=== PATIENT | female | born 1945 | race Caucasian/White ===

== ENCOUNTER 2022-03-03 06:31 | Observation (INO) ==
--- NOTE | 2022-02-04 14:37 | PAT Medication Instructions ---
Medication Instructions Date of Service February 04, 2022 Home Medications Medication Instructions Recorded acetaminophen 650 mg 1,300 mg PO Q12H PRN #90 tab 05/11/19 tablet,extended release (Tylenol Arthritis Pain) lancets (OneTouch UltraSoft #100 ea 05/11/19 Lancets) knee high compression stockings #1 ea 06/05/20 mild compression blood sugar diagnostic (OneTouch #100 ea 12/30/20 Ultra Blue Test Strip) metformin 1,000 mg tablet 1,000 mg PO BID #180 tab 08/15/21 insulin aspart U-100 100 unit/mL 14 unit SQ TID #13 syr 12/19/21 (3 mL) subcutaneous pen (Novolog Flexpen U-100 Insulin aspart) pen needle, diabetic 31 gauge x #150 ea 01/07/22 5/16" (Sure-Fine Pen [place]) acetaminophen 650 mg tablet,extended release (Tylenol Arthritis Pain) 1,300 mg PO Q12H PRN lancets (OneTouch UltraSoft Lancets) knee high compression stockings mild compression blood sugar diagnostic (OneTouch Ultra Blue Test Strip) insulin detemir U-100 100 unit/mL (3 mL) subcutaneous pen (Levemir FlexTouch U- 100 Insulin) 68 unit SQ QPM metformin 1,000 mg tablet 1,000 mg PO BID insulin aspart U-100 100 unit/mL (3 mL) subcutaneous pen (Novolog Flexpen U-100 Insulin aspart) 14 unit SQ TID pen needle, diabetic 31 gauge x 5/16" (Sure-Fine Pen [place]) aspirin 81 mg tablet,delayed release 81 mg PO QAM atorvastatin 20 mg tablet 20 mg PO QAM cyanocobalamin (vitamin B-12) 1,000 mcg tablet 1,000 mcg PO QAM furosemide 20 mg tablet 40 mg PO QAM hydrochlorothiazide 12.5 mg tablet 12.5 mg PO QAM levothyroxine 137 mcg tablet (Synthroid) 137 mcg PO QAM losartan 100 mg tablet 100 mg PO QAM metoprolol succinate 50 mg tablet,extended release 24 hr 50 mg PO QAM potassium chloride 10 mEq tablet,extended release 30 meq PO QAM DO NOT take the morning of surgery insulin aspart U-100 100 unit/mL (3 mL) subcutaneous pen (Novolog Flexpen U-100 Insulin aspart) 14 unit SQ TID metformin 1,000 mg tablet 1,000 mg PO BID cyanocobalamin (vitamin B-12) 1,000 mcg tablet 1,000 mcg PO QAM furosemide 20 mg tablet 40 mg PO QAM hydrochlorothiazide 12.5 mg tablet 12.5 mg PO QAM losartan 100 mg tablet 100 mg PO QAM potassium chloride 10 mEq tablet,extended release 30 meq PO QAM Take morning of surgery With a small sip of water, OTHERWISE NOTHING TO EAT OR DRINK AFTER MIDNIGHT: acetaminophen 650 mg tablet,extended release (Tylenol Arthritis Pain) 1,300 mg PO Q12H PRN(okay to take up to 4 hours prior to surgery if needed) aspirin 81 mg tablet,delayed release 81 mg PO QAM (unless directed otherwise by surgeon) atorvastatin 20 mg tablet 20 mg PO QAM levothyroxine 137 mcg tablet (Synthroid) 137 mcg PO QAM metoprolol succinate 50 mg tablet,extended release 24 hr 50 mg PO QAM Take evening before surgery acetaminophen 650 mg tablet,extended release (Tylenol Arthritis Pain) 1,300 mg PO Q12H PRN(if needed) metformin 1,000 mg tablet 1,000 mg PO BID Insulin Dependent Diabetic Patients * Test your blood sugar the morning of surgery * If Blood Sugar is GREATER THAN 150, take HALF of your regular dose of: insulin detemir U-100 100 unit/mL (3 mL) subcutaneous pen (Levemir FlexTouch U-100 Insulin) 68 unit SQ QPM-take 34 units. * If Blood Sugar is LESS THAN 150, DO NOT TAKE ANY: insulin detemir U-100 100 unit/mL (3 mL) subcutaneous pen (Levemir FlexTouch U-100 Insulin). Other Notes If you have any questions please call us at [phone] or [phone] or [phone] or [phone]
--- NOTE | 2022-02-05 11:55 | Anesthesiology Consultation ---
Date of Service February 05, 2022 Assessment & Plan (1) Encounter for pre-operative examination: - check BSG am DOS. - COVID screening: Per assessment on 02/05/2022: Travel screen negative, no known COVID-19 positive contacts or current COVID-19 related symptoms in past 2 weeks. Patient vaccinated. Surgeon arranging preop COVID testing, scheduled 03/01/2022. Awaiting results. Chart Review Chart Review: Acceptable Risk for Surgery and Patient NOT seen in Pre Admission Testing Teaching & Discussion Pre-Anesthesia Teaching/Discussion Notes: Instructed NPO after midnight before surgery, except medications with 15 cc of water. Medication instructions provided according to the PAT guidelines. History Surgery Operation Date: 03/03/22 10:35 Proposed Procedures p Right Total Knee Arthroplasty - Edgar Garcia MD Height/Weight Height: 5 ft 3 in Weight: 104.9 kg Allergies Allergy/AdvReac Type Severity Reaction Status Date / Time ibuprofen Allergy Severe Anaphylaxis Verified 02/04/22 12:47 and hives Penicillins Allergy Severe Anaphylaxis Verified 02/04/22 12:47 and hives Medications Home Medications Medication Instructions Recorded Confirmed Last Taken acetaminophen 650 mg 1,300 mg PO Q12H PRN #90 tab 05/11/19 02/04/22 Unknown tablet,extended release (Tylenol Arthritis Pain) lancets (OneTouch UltraSoft #100 ea 05/11/19 11/24/21 Unknown Lancets) knee high compression stockings #1 ea 06/05/20 11/24/21 Unknown mild compression blood sugar diagnostic (OneTouch #100 ea 12/30/20 11/24/21 Unknown Ultra Blue Test Strip) insulin detemir U-100 100 unit/mL 68 unit SQ QPM ml 07/20/21 02/04/22 Unknown (3 mL) subcutaneous pen (Levemir FlexTouch U-100 Insulin) metformin 1,000 mg tablet 1,000 mg PO BID #180 tab 08/15/21 02/04/22 Unknown insulin aspart U-100 100 unit/mL 14 unit SQ TID #13 syr 12/19/21 02/04/22 Unknown (3 mL) subcutaneous pen (Novolog Flexpen U-100 Insulin aspart) pen needle, diabetic 31 gauge x #150 ea 01/07/22 Unknown 02/08" (Sure-Fine Pen [place]) aspirin 81 mg tablet,delayed 81 mg PO QAM 02/04/22 02/04/22 Unknown release atorvastatin 20 mg tablet 20 mg PO QAM 02/04/22 02/04/22 Unknown cyanocobalamin (vitamin B-12) 1,000 mcg PO QAM 02/04/22 02/04/22 Unknown 1,000 mcg tablet furosemide 20 mg tablet 40 mg PO QAM 02/04/22 02/04/22 Unknown hydrochlorothiazide 12.5 mg tablet 12.5 mg PO QAM 02/04/22 02/04/22 Unknown levothyroxine 137 mcg tablet 137 mcg PO QAM 02/04/22 02/04/22 Unknown (Synthroid) losartan 100 mg tablet 100 mg PO QAM 02/04/22 02/04/22 Unknown metoprolol succinate 50 mg 50 mg PO QAM 02/04/22 02/04/22 Unknown tablet,extended release 24 hr potassium chloride 10 mEq 30 meq PO QAM 02/04/22 02/04/22 Unknown tablet,extended release Past Medical History Medical History (Updated 02/05/22 @ 12:17 by Milena Pace PA-C) Adenomatous colon polyp Bilateral leg edema on diuretic Chronic lower back pain Diabetes mellitus IDDM 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 Exercise / Class Metabolic Activity III < 4 Walking/Shop/Light housework (ambulates with walker or cane, denies CP or SOB) Past Family History Family History Mother Diabetes Hypertension Grandmother (Maternal) Diabetes Grandfather (Maternal) Diabetes Father Heart disease Heart disease Grandfather (Paternal) Heart disease Grandmother (Paternal) Heart disease Brother Diabetes GI hemorrhage Father Asthma Sister Acid reflux Other No family history of adverse response to anesthesia Denies family history of Ovarian cancer Prostate cancer Myocardial infarction Breast cancer Colorectal cancer Past Surgical History Surgical History (Updated 02/05/22 @ 12:17 by Milena Pace PA-C) H/O excision of mass (01/12/21) Excision of mass on back 01/12/[address] Sauceda History of bilateral cataract extraction History of repair of right rotator cuff 2019 History of tooth extraction S/P cholecystectomy S/P colonoscopy x2 Past Anesthesia History No Hx of Anesthesia Complications and No Family Hx of Anesthesia Complications History of PONV No Hx of PONV and No Hx of Motion Sickness Social History Smoking Status: Never smoker Do You Dip or Chew Tobacco: No Hx Alcohol Use: No Hx Substance Use: No substance use type: does not use Review of Systems Patient denies chest pain, shortness of breath, dyspnea on exertion, reflux, fever, chills, cough, wheezing, or palpitations. Physical Exam Vital Signs Vitals BP 128/71 P 57 TEMP 98.8 SP02 97% on RA RESP 17 Physical Full cervical extension range of motion without pain TMD 3.5 finger breaths Mallampati Score 3 Dentition: intact, full upper dentures and Lungs: normal respiratory effort. Clear throughout to auscultation, no adventitious breath sounds Cardiac: regular rate and rhythm, no murmurs noted Carotid arteries: negative bruit bilat Lab Results Anesthesia Preop Results Results Anesthesia Widget: WBC 8.50 K/uL (4.8-10.8) 02/05/22 Hgb 12.4 g/dL (12.0-16.0) 02/05/22 Hct 37.7 % (37-47) 02/05/22 Plt 232 K/uL (130-400) 02/05/22 Na 142 mmol/L (136-145) 02/05/22 K 4.1 mmol/L (3.5-5.1) 02/05/22 Cl 107 mmol/L (98-107) 02/05/22 CO2 26 mmol/L (21-32) 02/05/22 BUN 18 mg/dl (6-23) 02/05/22 Creat 0.80 mg/dl (0.6-1.2) 02/05/22 Glucose Level 108 mg/dl (70-99(Fasting)) H 02/05/22 PT 10.3 Seconds (9.0-12.0) 02/05/22 PTT 22.2 Seconds (21.0-31.0) 02/05/22 INR 1.0 (0.9-1.1) 02/05/22 HA1c 6.7 % (4.5-5.6) H 02/05/22 Urine Color Yellow 02/05/22 Urine Appearance Clear (Clear) 02/05/22 Urine pH 5.0 (4.5-7.5) 02/05/22 Urine Specific [place] 1.011 (1.000-1.030) 02/05/22 Urine Protein Negative (Negative) 02/05/22 Urine Glucose (UA) Negative (Negative) 02/05/22 Urine Ketones Negative (Negative) 02/05/22 Urine Blood Negative (Negative) 02/05/22 Urine Nitrite Negative (Negative) 02/05/22 Urine Bilirubin Negative (Negative) 02/05/22 Urine Urobilinogen Negative (Negative) 02/05/22 Urine Leukocyte Esterase 1+ (Negative) H 02/05/22 Urine WBC (Auto) 5-10 /hpf (0-5) H 02/05/22 Urine RBC (Auto) 0-4 /hpf (0-4) 02/05/22 Urine Hyaline Casts (Auto) 0 /lpf (0-5) 02/05/22 Urine Epithelial Cells (Auto) 20-30 /lpf (0-5) H 02/05/22 Urine Bacteria (Auto) 4+ (Negative) H 02/05/22 Blood Type A Positive 02/05/22 Antibody Screen NEGATIVE 02/05/22 Testing Electrocardiogram Date: 02/05/22 NSR, rate 64 bpm Chest X-Ray Date: 02/05/22 Borderline cardiomegaly. Otherwise, no acute process within the chest. Echocardiogram Date: 07/30/21 EF 60-65% Mild cLVH No regional wall motion abnormalities Mild mitral regurgitation Grade II diastolic dysfunction
--- NOTE | 2022-02-05 12:18 | PAT Medication Instructions ---
Medication Instructions Date of Service February 05, 2022 Home Medications Medication Instructions Recorded acetaminophen 650 mg 1,300 mg PO Q12H PRN #90 tab 05/11/19 tablet,extended release (Tylenol Arthritis Pain) lancets (OneTouch UltraSoft #100 ea 05/11/19 Lancets) knee high compression stockings #1 ea 06/05/20 mild compression blood sugar diagnostic (OneTouch #100 ea 12/30/20 Ultra Blue Test Strip) metformin 1,000 mg tablet 1,000 mg PO BID #180 tab 08/15/21 insulin aspart U-100 100 unit/mL 14 unit SQ TID #13 syr 12/19/21 (3 mL) subcutaneous pen (Novolog Flexpen U-100 Insulin aspart) pen needle, diabetic 31 gauge x #150 ea 01/07/22 516" (Sure-Fine Pen [place]) Continue as directed acetaminophen 650 mg tablet,extended release (Tylenol Arthritis Pain) 1,300 mg PO Q12H PRN lancets (OneTouch UltraSoft Lancets) knee high compression stockings mild compression blood sugar diagnostic (OneTouch Ultra Blue Test Strip) insulin detemir U-100 100 unit/mL (3 mL) subcutaneous pen (Levemir FlexTouch U- 100 Insulin) 68 unit SQ QPM metformin 1,000 mg tablet 1,000 mg PO BID insulin aspart U-100 100 unit/mL (3 mL) subcutaneous pen (Novolog Flexpen U-100 Insulin aspart) 14 unit SQ TID pen needle, diabetic 31 gauge x 5/16" (Sure-Fine Pen [place]) aspirin 81 mg tablet,delayed release 81 mg PO QAM atorvastatin 20 mg tablet 20 mg PO QAM cyanocobalamin (vitamin B-12) 1,000 mcg tablet 1,000 mcg PO QAM furosemide 20 mg tablet 40 mg PO QAM hydrochlorothiazide 12.5 mg tablet 12.5 mg PO QAM levothyroxine 137 mcg tablet (Synthroid) 137 mcg PO QAM losartan 100 mg tablet 100 mg PO QAM metoprolol succinate 50 mg tablet,extended release 24 hr 50 mg PO QAM potassium chloride 10 mEq tablet,extended release 30 meq PO QAM DO NOT take the morning of surgery insulin aspart U-100 100 unit/mL (3 mL) subcutaneous pen (Novolog Flexpen U-100 Insulin aspart) 14 unit SQ TID metformin 1,000 mg tablet 1,000 mg PO BID cyanocobalamin (vitamin B-12) 1,000 mcg tablet 1,000 mcg PO QAM furosemide 20 mg tablet 40 mg PO QAM hydrochlorothiazide 12.5 mg tablet 12.5 mg PO QAM losartan 100 mg tablet 100 mg PO QAM potassium chloride 10 mEq tablet,extended release 30 meq PO QAM Take morning of surgery With a small sip of water, OTHERWISE NOTHING TO EAT OR DRINK AFTER MIDNIGHT: acetaminophen 650 mg tablet,extended release (Tylenol Arthritis Pain) 1,300 mg PO Q12H PRN(okay to take up to 4 hours prior to surgery if needed) aspirin 81 mg tablet,delayed release 81 mg PO QAM(unless directed otherwise by surgeon) atorvastatin 20 mg tablet 20 mg PO QAM levothyroxine 137 mcg tablet (Synthroid) 137 mcg PO QAM metoprolol succinate 50 mg tablet,extended release 24 hr 50 mg PO QAM Take evening before surgery insulin detemir U-100 100 unit/mL (3 mL) subcutaneous pen (Levemir FlexTouch U- 100 Insulin) 68 unit SQ QPM acetaminophen 650 mg tablet,extended release (Tylenol Arthritis Pain) 1,300 mg PO Q12H PRN(if needed) metformin 1,000 mg tablet 1,000 mg PO BID Other Notes If you have any questions please call us at [phone] or [phone] or [phone] or [phone]
--- NOTE | 2022-02-27 08:39 | History & Physical Report ---
Date of Service February 27, 2022 Assessment & Plan (1) Primary osteoarthritis of right knee: Plan: Treatment options discussed with the patient. She has failed conservative measures and would like to proceed with surgical intervention. Risks, benefits and alternatives to surgery including but not limited to infection, DVT, pain, stiffness, need for revision surgery, damage to blood vessels, damage to nerves, PE, , were discussed with the patient and they wish to proceed. Plan on right total knee arthroplasty scheduled at [facility] for March [address] Garcia. We will plan on aspirin twice daily for 1 month postop for DVT prophylaxis. Patient would like to go to an inpatient rehab/intermediate facility postop. All questions answered. Patient will follow-up postop. History of Present Illness Chief Complaint: Right knee pain Primary Care Provider: Gail Osorio MD 76-year-old female past medical history significant for diabetes mellitus type 2, hypertension, high cholesterol hypothyroidism, who presents with ongoing right knee pain. Patient has failed conservative measures including cortisone and Visco injections, anti-inflammatories. Pain is interfering with her daily activities. She would like to proceed with knee replacement. Patient denies headaches, sweats, fevers, chills, double vision, blurred vision, cough, sore throat, dysphagia, chest pain, sob, wheezing, n/v/d/c, numbness, tingling, fatigue, urinary symptoms, mood disorders. ROS positive for right knee pain and stiffness. Allergies Allergy/AdvReac Type Severity Reaction Status Date / Time ibuprofen Allergy Severe Anaphylaxis Verified 02/04/22 12:47 and hives Penicillins Allergy Severe Anaphylaxis Verified 02/04/22 12:47 and hives Home Medications Medication Instructions Recorded Confirmed Type acetaminophen 650 mg 1,300 mg PO Q12H PRN #90 tab 05/11/19 02/10/22 Rx tablet,extended release (Tylenol Arthritis Pain) lancets (OneTouch UltraSoft #100 ea 05/11/19 02/10/22 Rx Lancets) knee high compression stockings #1 ea 06/05/20 02/10/22 Rx mild compression metformin 1,000 mg tablet 1,000 mg PO BID #180 tab 08/15/21 02/10/22 Rx insulin aspart U-100 100 unit/mL 14 unit SQ TID #13 syr 12/19/21 02/10/22 Rx (3 mL) subcutaneous pen (Novolog Flexpen U-100 Insulin aspart) pen needle, diabetic 31 gauge x #150 ea 01/07/22 02/10/22 Rx 5/16" (Sure-Fine Pen [place]) aspirin 81 mg tablet,delayed 81 mg PO QAM 02/04/22 02/10/22 History release atorvastatin 20 mg tablet 20 mg PO QAM 02/04/22 02/10/22 History cyanocobalamin (vitamin B-12) 1,000 mcg PO QAM 02/04/22 02/10/22 History 1,000 mcg tablet furosemide 20 mg tablet 40 mg PO QAM 02/04/22 02/10/22 History hydrochlorothiazide 12.5 mg tablet 12.5 mg PO QAM 02/04/22 02/10/22 History levothyroxine 137 mcg tablet 137 mcg PO QAM 02/04/22 02/10/22 History (Synthroid) losartan 100 mg tablet 100 mg PO QAM 02/04/22 02/10/22 History metoprolol succinate 50 mg 50 mg PO QAM 02/04/22 02/10/22 History tablet,extended release 24 hr potassium chloride 10 mEq 30 meq PO QAM 02/04/22 02/10/22 History tablet,extended release blood sugar diagnostic #100 ea 02/10/22 02/10/22 Rx insulin detemir U-100 100 unit/mL 68 unit SQ QPM #45 ml 02/10/22 02/10/22 Rx (3 mL) subcutaneous pen (Levemir FlexTouch U-100 Insulin) Past Med/Surg History Medical History (Updated 02/27/22 @ 08:37 by Rodrigo Atwood PA-C) Adenomatous colon polyp Bilateral leg edema on diuretic Chronic lower back pain Diabetes mellitus IDDM 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 Sohail History of bilateral cataract extraction History of repair of right rotator cuff 2019 History of tooth extraction S/P cholecystectomy S/P colonoscopy x2 Family History Mother Diabetes Hypertension Grandmother (Maternal) Diabetes Grandfather (Maternal) Diabetes Father Heart disease Heart disease Grandfather (Paternal) Heart disease Grandmother (Paternal) Heart disease Brother Diabetes GI hemorrhage Father Asthma Sister Acid reflux Other No family history of adverse response to anesthesia Denies family history of Ovarian cancer Prostate cancer Myocardial infarction Breast cancer Colorectal cancer Social History Smoking Status: Never smoker Second Hand Exposure: Yes (Brothers and smoked); Hx Alcohol Use: No Hx Substance Use: No Preferred Language: Amharic Communication Ability: Effective Visual Impairment: Limited Hearing Ability: Normal Retail Asset Protection Specialist Required: No Beliefs That Will Affect Care: None marital status: Current Living Situation: Spouse current occupational status: retired How many Children do You have: 3 Feels Safe at Home: Yes Childhood Exposure to Second-Hand Smoke: Yes (Brothers smoked ) Diet Comment: Diabetic diet caffeine: Yes (tea coffee) during the past year weight has: remained stable Dental Care, Regularly: Yes Physical Activity Frequency: Does not Exercise Seatbelt Use: always Sunscreen Use: No Do you think of yourself as: straight/heterosexual Assistive Devices: CPAP, Denture - Upper, Denture - Lower, Glasses and Walker Review of Systems All systems reviewed & are unremarkable except as noted in HPI & below Physical Exam Constitutional: well developed and well nourished; no acute distress Eyes: PERRL, conjunctivae normal, anicteric sclerae ENMT: external ear and nose normal, oropharynx normal Neck: trachea midline, no thyromegaly Respiratory: normal respiratory effort, lungs clear to auscultation Cardiovascular: RRR, no murmur, no edema Musculoskeletal: Right knee: Mild effusion. Tenderness medial lateral joint lines. Stable valgus varus stress test. Positive Smooth's. Range of motion is 5 to 90 degrees. Moderate crepitation. Valgus alignment. Skin: no rashes, warm and dry Neurologic: patellar DTR's 2+ bilat, sensation intact Psychiatric: A+Ox3, euthymic affect Results & Data ([facility]) Diagnostic Findings Right knee: Severe end-stage osteoarthritis right knee, valgus alignment. Patient has [id number] lateral compartment. There is periarticular osteophyte formation all 3 compartments.
[~2022-03-03 06:31] MED LIST: ACETAMINOPHEN 500 MG TAB PO SCH; DEXAMETHASONE SOD INJ 4 MG/ML VIAL ONE; FAMOTIDINE 20 MG TAB PO SCH; GABAPENTIN 300 MG CAP PO SCH; LR 500ML BOLUS, THEN 15ML/HR IV SCH; METOCLOPRAMIDE HCL 10 MG TABLET PO SCH; ROPIVACAINE 0.5% 5 MG/ML 30 ML VIAL ONE; ROPIVACAINE 0.5% HCL/PF 150 MG, BUPIVACAINE 0.75% MPF 20 ML, EPINEPHrine 30MG/30ML (OR ... INSTIL SCH; TRANEXAMIC ACID 1,000 MG **IV Intra-op IV SCH; TRANEXAMIC ACID 1,000 MG **IV Pre-op IV SCH; VANCOMYCIN HCL 1,500 MG in SODIUM CHLORIDE 0.9% 500 ML IV SCH
--- NOTE | 2022-03-03 07:12 | History & Physical Bridge Note ---
Date of Service March 03, 2022 History & Physical Bridge Note I have examined the patient, reviewed the History & Physical and in the interval since the performance of the History & Physical I have noted the following changes of clinical significance: no changes noted
[2022-03-03] MEDS ORDERED: HYDROmorphone INJ 1 MG/ML SYRINGE IV PRN (08:22)
[2022-03-03] MEDS ORDERED: ATROPINE SULFATE 0.1 MG/ML 10ML SYR IV PRN (08:22)
[2022-03-03] MEDS ORDERED: ePHEDrine sulfate 50 MG/ML AMP IV PRN (08:22)
[2022-03-03] MEDS ORDERED: MIDAZOLAM HCL 1 MG/ML 2ML VIAL ONE (08:22)
[2022-03-03] MEDS ORDERED: dexAMETHasone 4 MG TAB PO ONE (08:22)
[2022-03-03] MEDS ORDERED: KETAMINE 50 MG/5 ML SYRINGE ONE (08:22)
[2022-03-03] MEDS ORDERED: ORTHO JOINT ANESTHETIC ONE (08:30)
[2022-03-03] MEDS ORDERED: ONDANSETRON INJ 2 MG/ML 2 ML VIAL ONE (09:11)
[2022-03-03] MEDS ORDERED: PROPOFOL IV EMULSION 10 MG/ML 20 ML VIAL IV ONE ×2 (09:11→10:22)
[2022-03-03] MEDS ORDERED: GLYCOPYRROLATE 0.2 MG/ML VIAL ONE (09:11)
[2022-03-03] MEDS ORDERED: LIDOCAINE 2% 2 ML VIAL/AMP(20MG/ML) INFIL ONE (09:11)
[2022-03-03] MEDS ORDERED: ePHEDrine sulfate 50 MG/ML AMP ONE (09:39)
[2022-03-03] MEDS ORDERED: SODIUM CHLORIDE 0.9% INJ 10 ML VIAL ONE (09:39)
--- NOTE | 2022-03-03 11:12 | Operative Report ---
Post Operative Report Pre & Post Diagnosis Operation Date: 03/03/22 09:15 Pre-Op Diagnosis: Right Knee Osteoarthritis, Pasquale slaughters disease, obesity BMI 40.9 Post-Op Diagnosis: Right Knee Osteoarthritis, [place] slaughters disease, obesity BMI 40.9 I identified the patient and participated in the time-out.: Yes Procedure Operation Date: 03/03/22 09:15 Actual Procedures p Right Total Knee Arthroplasty(Right), superficial wound VAC, increased difficulty BMI 40.9 Edgar Garcia MD Surgeon Edgar Garcia MD Hot Air Furnace Installer Repairer Ravi PADILLA Estimated Blood Loss 5 Findings Consistent with Post-Op Diagnosis Specimens Bone cuts Drains 2 Hemovac Anesthesia Type MAC Spinal Regional Complications none Disposition Accompanied Patient To Recovery: No Disposition: Recovery Room Indications 76-year female with chronic aggressive osteoarthritis in her right knee. Radiographs demonstrates [id number] lateral compartment which is tricompartmental osteoarthritis. She has limited range of motion. Description of Procedure Patient taken to the operating room the size under spinal MAC regional block anesthesia. Patient was placed supine on the operating table. A pneumatic tourniquet was placed about the right obese upper thigh. The right lower extremity was prepped and draped in sterile fashion. Knee exam demonstrated an obese valgus knee 0 through 90 degrees range of motion and prominent tibial tubercle consistent with old [place] slaughters. Patient had tight knee with no instability. The leg was elevated exsanguinated with an Esmarch bandage and pneumatic tourniquet was raised to 350 millimeters of mercury. Skin incised sharply in longitudinal fashion. Subcutaneous flaps elevated. Incision was made through the medial retinaculum extending up in the mid third of the quadriceps tendon and down to the medial tibial tubercle. Intra-articular findings demonstrated tricompartmental osteoarthritis [id number] lateral compartment chronic lateral meniscus tear. There was a hypoplastic lateral femoral condyle. The Fashioholicn total knee arthroplasty system was used. To expose the knee the infrapatellar fat pad was resected. The meniscal remnants and cruciate ligaments were resected. The anterior fat pad over the femur in the area of the anterior flange of the femoral component was resected. Lateral synovial bands release. The femur was exposed. An intramedullary drill hole was made into the canal. A guide tiffanie was placed. Distal femoral cutting guide was adjusted to resect a 6 degree valgus cut with 8 millimeters distal femur resected. The knee was extended and a subperiosteal peel lateral release was performed around the patella. Patella width was measured and width was reproduced using a freehand cut technique and a 36 x 10 symmetrical patella component. The 3 drill holes were made and the excess lateral facet was beveled off to prevent any impingement. Attention was taken back to the femur which was exposed with retractors and the femoral sizing guide was pinned in position. The drill holes were placed in 3 of external rotation to match epicondylar axis. Femur sized for a 5 posterior stabilized component. The 4-in-1 cutting block was placed and then the anterior posterior and chamfer cuts are made. The tibia was then subluxed. The external tibial cutting guide was just to make a perpendicular cut to the long axis of the tibia below the most deficient bone loss side. A lamina stick welder was used and the flexion extension gaps were balanced. All posterior osteophytes removed. All meniscal remnants were resected. The tibia exposed and the trial tibial component size 4 was externally rotated in line with the tibial tubercle and pinned in position. The punch for stem was used. The notch cutting device was centered appropriately and the femoral notch cut was made. The femoral trial was inserted. Trial tibial inserts were placed. The size 9 was too tight to get into the space so he had to recut the tibia. In order to get the external tibial cutting guide to the appropriate depth to make 2 more millimeters of a cut I had to resect some of the proximal tibial tubercle to make room for the cutting guide. After cutting guide was readjusted the oscillating saw was used to recut the proximal tibia and the punch was used again to get the appropriate depth for the stem. Trial we reduction performed with the trials and a size 9 tibial insert gave balanced ligaments through flexion and extension. Patella tracking was assessed. The patella tracked centrally. There was 0 through 100 degrees range of motion. The trial components were then removed and the orthomix anesthetic cocktail was injected per protocol. The knee was then copiously irrigated with pulsatile lavage saline solution. Final components were then cemented with Refobacin cement. Final components were triathlon right size 5 posterior stabilized femoral component, size 4 tibial primary insert, 9 mm tibial polyethylene and the 36 x 10 mm symmetrical polyethylene patella. After the cement cured the Betadine soak was used for 3 minutes. Further pulsatile lavage irrigation was then performed and 2 Hemovac drains were brought out laterally. The quadriceps tendon and medial retinaculum were closed with figure of 8 #1 Vicryl sutures. The knee was taken through full range of motion and the repair was secure. Knee range of motion was 0 through 100. The subcutaneous tissues were closed with 2-0 Vicryl sutures. Skin was closed with marizol. Amanda and Acticoat superficial wound VAC was applied. Was increased level difficulty due to her obesity the Pasquale slaughters disease which added 30 minutes to the procedure. The patient tolerated the procedure well. Ravi PADILLA was my physician certified ophthalmic assistant who participated as mobile sales assistant and was involved in all aspects of the procedure including patient positioning prepping and draping,leg positioning ,soft tissue retraction and instrument management and participated in the closing and will participate in postoperative care of the patient. The patient tolerated the procedure well. I attest to the content of the Intraoperative Record and any orders documented therein. Any exceptions are noted below.
--- NOTE | 2022-03-03 12:17 | Anesthesiology Progress Note ---
Date of Service March 03, 2022 Anesthesia Post Procedure Vital Signs Vital Signs: Temp Pulse Pulse Resp BP BP Pulse Ox 03/03/22 12:10 36.8 C 58 L 14 146/58 H 96 03/03/22 12:00 36.8 C 57 L 18 133/61 93 03/03/22 11:50 64 20 136/63 94 03/03/22 11:40 64 18 129/48 L 95 03/03/22 11:32 36.2 C L 64 17 133/55 L 99 03/03/22 07:13 36.9 C 66 18 163/70 H 99 Pain Intensity Bilateral Knee: Pain Intensity: 8 Transfer of Care Handoff Completed per policy Notes Mental Status: alert / awake / arousable and participated in evaluation Patient Amnestic to Procedure: Yes Nausea / Vomiting: adequately controlled Pain: adequately controlled Airway Patency, RR, SpO2: stable & adequate BP & HR: stable & adequate Hydration State: stable & adequate Anesthetic Complications: no major complications apparent and Pt Satisfied with anesthetic care
--- NOTE | 2022-03-03 12:23 | XRay Report ---
XR knee RT 1 or 2V routine CLINICAL HISTORY: Surgical Post Op TECHNIQUE: 2 views of the right knee were obtained. Comparison: None available at the time of this dictation. FINDINGS: Patient is status post total knee arthroplasty with expected postsurgical changes including soft tiss ue swelling, subcutaneous emphysema, and surgical staple placement. No periarticular lucency or hardw are fracture is seen. IMPRESSION: Expected postoperative appearance status post placement of total knee arthroplasty. ACT 112: Negative or not required by law. Electronically signed by: Jude Fritz M.D. 03/03/2022 12:21 PM
[2022-03-03] MEDS ORDERED: bisacodyL 10 MG SUPP PR PRN (13:43)
[2022-03-03] MEDS ORDERED: NALOXONE HCL 0.4 MG/1 ML VIAL/CARP IV PRN (13:43)
[2022-03-03] MEDS ORDERED: ONDANSETRON INJ 2 MG/ML 2 ML VIAL IV PRN (13:43)
[2022-03-03] MEDS ORDERED: VANCOMYCIN CONSULT ACTIVE PRN (13:43)
[2022-03-03] MEDS ORDERED: PHARMACY GLYCEMIC MGMT CONSULT PRN (13:43)
[2022-03-03] MEDS ORDERED: HYDROmorphone INJ 0.5 MG/0.5 ML SYR IV PRN (13:43)
[2022-03-03] MEDS ORDERED: MAGNESIUM HYDROXIDE SUSP 30 ML UDC PO PRN (13:43)
--- NOTE | 2022-03-03 13:53 | Hospitalist Consultation ---
Date of Consultation March 03, 2022 Assessment & Plan (1) Primary osteoarthritis of right knee: - s/p R TKA POD #0. EBL 5cc - Defer ABX/pain/bowel regimen/IVF/DVT ppx to primary team. - Narcan on board prn. - CBC and BMP in AM. (2) Essential hypertension: - Takes Losartan 100 mg daily, Metoprolol 50 mg daily, HCTZ 12.5 mg daily, Furosemide 40 mg daily. - May continue beta-sigifredo today, would recommend holding HCTZ, Lasix, Losartan until tomorrow AM pending stable renal functon on BMP. (3) Diabetes mellitus: - Last A1C 6.7 on 02/05/22. - Home regimen--> Metformin 1000 mg BID, Levemir 68 units in the evening and Novolog 14 units TID with meals. - Can continue metformin, accuchecks ACHS with SSI, continue home evening Levemir insulin. (4) Hyperlipidemia: - Continue Lipitor 20 mg daily. (5) Hypothyroidism: - TSH WNL 11/24/21. - Continue Levothyroxine 137 mcg daily. (6) LACIE on CPAP: - Continue CPAP at night. (7) Bilateral leg edema: - Takes Lasix 40 mg daily with 30 mEq K+. - Recommend continuing Lasix tomorrow pending stable renal function on BMP. - Admitted to med/surg s/p R TKA per primary team. - SCDs, ASA 81mg BID for DVT ppx as ordered by primary team. - Full Code. Supervising Physician Co-Signing Physician Notes Discussed case with ROLANDO, reviewed medical record. Agree with her note above. Our service was consulted by Dr. Duvall, currently TKA POD #0. Plan to continue medical management as noted above. No acute medical issues. Floor team will continue to follow while the patient remains here in the hospital. History of Present Illness Reason for Consultation: medical management Attending Physician: Edgar Garcia MD History of Present Illness Jazmyn Romeo is a 76 y/o F with a PMH of DM2 on insulin, w/ neuropathy, HTN, HLD, hypothyroidism, and LACIE who was admitted today, 03/03 for right TKA with Dr. Garcia after failing conservative therapies. Hospitalist service was consulted for medication management. She is POD#0 and doing well, without complaints. Denies fever/chills, chest pain, palpitations, SOB, cough, abdominal pain, n/v/d, pain, weakness, or numbness. Allergies Allergy/AdvReac Type Severity Reaction Status Date / Time ibuprofen Allergy Severe Anaphylaxis Verified 03/03/22 06:56 and hives Penicillins Allergy Severe Anaphylaxis Verified 03/03/22 06:56 and hives Home Medications Medication Instructions Recorded Confirmed Type acetaminophen 650 mg 1,300 mg PO Q12H PRN #90 tab 05/11/19 03/03/22 Rx tablet,extended release (Tylenol Arthritis Pain) lancets (OneTouch UltraSoft #100 ea 05/11/19 02/10/22 Rx Lancets) knee high compression stockings #1 ea 06/05/20 02/10/22 Rx mild compression insulin aspart U-100 100 unit/mL 14 unit SQ TID #13 syr 12/19/21 03/03/22 Rx (3 mL) subcutaneous pen (Novolog Flexpen U-100 Insulin aspart) pen needle, diabetic 31 gauge x #150 ea 01/07/22 02/10/22 Rx 5/16" (Sure-Fine Pen Elma) aspirin 81 mg tablet,delayed 81 mg PO QAM 02/04/22 03/03/22 History release atorvastatin 20 mg tablet 20 mg PO QAM 02/04/22 03/03/22 History cyanocobalamin (vitamin B-12) 1,000 mcg PO QAM 02/04/22 03/03/22 History 1,000 mcg tablet furosemide 20 mg tablet 40 mg PO QAM 02/04/22 03/03/22 History hydrochlorothiazide 12.5 mg tablet 12.5 mg PO QAM 02/04/22 03/03/22 History levothyroxine 137 mcg tablet 137 mcg PO QAM 02/04/22 03/03/22 History (Synthroid) losartan 100 mg tablet (Cozaar) 100 mg PO QAM 02/04/22 03/03/22 History metoprolol succinate 50 mg 50 mg PO QAM 02/04/22 03/03/22 History tablet,extended release 24 hr potassium chloride 10 mEq 30 meq PO QAM 02/04/22 03/03/22 History tablet,extended release blood sugar diagnostic #100 ea 02/10/22 02/10/22 Rx insulin detemir U-100 100 unit/mL 68 unit SQ QPM #45 ml 02/10/22 03/03/22 Rx (3 mL) subcutaneous pen (Levemir FlexTouch U-100 Insulin) metformin 1,000 mg tablet 1,000 mg PO BID 03/03/22 03/03/22 History Patient History Medical History Adenomatous colon polyp Bilateral leg edema on diuretic Chronic lower back pain Diabetes mellitus IDDM Diabetic peripheral neuropathy associated with type 2 diabetes mellitus feet Essential hypertension History of COVID-19 diagnosed 08/28/20 @ [facility]--asymptomatic-fully resolved Hyperlipidemia Hypothyroidism Incontinent of urine Morbid obesity with BMI of 40.0-44.9, adult LACIE on CPAP compliant Venous insufficiency Surgical History H/O excision of mass (01/12/21) Excision of mass on back 01/12/[address] Sauceda History of bilateral cataract extraction History of repair of right rotator cuff 2019 History of tooth extraction S/P cholecystectomy S/P colonoscopy x2 Family History Mother Diabetes Hypertension Grandmother (Maternal) Diabetes Grandfather (Maternal) Diabetes Father Heart disease Heart disease Grandfather (Paternal) Heart disease Grandmother (Paternal) Heart disease Brother Diabetes GI hemorrhage Father Asthma Sister Acid reflux Other No family history of adverse response to anesthesia Denies family history of Ovarian cancer Prostate cancer Myocardial infarction Breast cancer Colorectal cancer Social History Smoking Status: Never smoker Second Hand Exposure: Yes (Brothers and smoked); Do You Dip or Chew Tobacco: No; Tobacco Cessation Education Requested by Patient: No Hx Alcohol Use: No Hx Substance Use: No Preferred Language: Chilean Communication Ability: Effective Visual Impairment: Limited Hearing Ability: Normal Glass Cut Off Supervisor Required: No Beliefs That Will Affect Care: None marital status: Current Living Situation: Spouse current occupational status: retired How many Children do You have: 3 Other Information That Helps Us Care for You: No Feels Safe at Home: Yes Safety Concerns: Feels Safe At This Time Childhood Exposure to Second-Hand Smoke: Yes (Brothers smoked ) Diet Comment: Diabetic diet caffeine: Yes (tea coffee) during the past year weight has: remained stable Dental Care, Regularly: Yes Physical Activity Frequency: Does not Exercise Seatbelt Use: always Sunscreen Use: No Do you think of yourself as: straight/heterosexual Assistive Devices: CPAP, Denture - Upper and Glasses Review of Systems Review of Systems: Constitutional: No fever/chills, weakness, fatigue, myalgias, anorexia, night sweats Eyes: No diplopia, no worsening or blurred vision ENT: normal hearing, no trouble swallowing Respiratory: No cough, sputum, dyspnea at rest or on exertion Cardiovascular: No chest pain, tightness or palpitations Abdomen: No pain, nausea, vomiting, diarrhea or constipation : Denies dysuria, hematuria, increased urgency/frequency, urinary retention Musculoskeletal: No joint pain, calf pain, swelling Neurologic: No weakness, numbness/tingling, or balance problems Psychiatric: No anxiety or depression Skin: No rash or itch Physical Exam Physical Exam: General: awake, alert, no apparent distress Head: Normocephalic, atraumatic ENT: PERRL, EOMI, no pharyngeal exudate, mucous membranes moist Chest: Clear to auscultation, on room air, no adventitious breath sounds Cardiac: Regular rate and rhythm, no murmur, no JVD, normal peripheral pulses, good capillary refill Abdominal: NABS x 4 quadrants, soft, nontender to palpation, no rebound, guarding or tenderness Extremities: Normal inspection, no peripheral edema or erythema, calfs nontender to palpation Psych: Normal mood and affect Neuro: AAO x 3, strength intact bilaterally and rated 5/5, no motor deficits, speech is clear, no peripheral sensory deficits Skin: no rash or erythema Results & Data Results & Data ([facility]) Vital Signs (Past 12 Hours) Vital Signs Temp Pulse Pulse Resp BP BP Pulse Ox 03/03/22 12:55 58 L 20 146/62 H 93 03/03/22 12:40 59 L 19 143/54 H 94 03/03/22 12:25 57 L 18 143/60 H 94 03/03/22 12:10 58 L 14 146/58 H 96 03/03/22 12:00 36.8 C 57 L 18 133/61 93 03/03/22 11:50 64 20 136/63 94 03/03/22 11:40 64 18 129/48 L 95 03/03/22 11:32 36.2 C L 64 17 133/55 L 99 03/03/22 07:13 36.9 C 66 18 163/70 H 99 PG Care Time/CCT Total # of Minutes Spent Total Time Spent with Patient: Total time spent is greater than 50% in coordination of care (as documented) at patient's floor/unit and/or counseling patient: Coding Level of Care Code 67170 Inpt Consult Level 3 Diagnoses Primary osteoarthritis of right knee M17.11 Essential hypertension I10 Diabetes mellitus E11.42; Z79.4 Diabetes mellitus complication detail: with polyneuropathy Diabetes mellitus complication status: with neurologic complications Diabetes mellitus long distance operator insulin use: with long distance operator use Diabetes mellitus type: type 2 Hyperlipidemia E78.2 Hyperlipidemia type: mixed hyperlipidemia Hypothyroidism E03.9 LACIE on CPAP G47.33; Z99.89 Bilateral leg edema R60.0 (1) Diabetes mellitus Diabetes mellitus complication detail: with polyneuropathy Diabetes mellitus complication status: with neurologic complications Diabetes mellitus senior care insulin use: with senior care use Diabetes mellitus type: type 2 Qualified Code(s): E11.42 - Type 2 diabetes mellitus with diabetic polyneuropathy; Z79.4 - longterm (current) use of insulin (2) Hyperlipidemia Hyperlipidemia type: mixed hyperlipidemia Qualified Code(s): E78.2 - Mixed hyperlipidemia
[2022-03-03] MEDS: SODIUM CHLORIDE 0.9% 1000ML 1,000 ML IV SCH (14:53)
[2022-03-03] MEDS: ACETAMINOPHEN 500 MG TAB PO SCH ×2 (14:54→20:41)
[2022-03-03] MEDS: INSULIN ASPART PER UNIT SC SCH ×3 (14:55→20:52)
--- NOTE | 2022-03-03 15:27 | Pharmacy Report ---
Pharmacy Glycemic Short Note 2 - Date of Service March 03, 2022 - Glycemic Short BSG Results (Last 24 hours): 03/03/22 03/03/22 03/03/22 06:58 11:36 14:34 POC Glucose 134 H 175 H 223 H OUTPATIENT ANTIDIABETIC REGIMEN: * Levemir 68 units HS * Novolog 14 units TIDM * Metformin 1 gm PO BID * HbA1C = 6.7% (02/05/22) ASSESSMENT: * Ms Romeo is a 76 y/o F with a PMH of IDDM who presents for R knee surgery. Patient received dexamethasone 8 mg IV intraop. * Confirmed via nurse that patient took 68 units of Levemir evening prior to surgery. * BSGs today are 134-175 and 223 mg/dL after surgery. * Will give Levemir 68 units (home dose) with dinner. Would typically reduce by 20% since home regimen is basal heavy but will give normal dose due to steroids. * Novolog based upon home dose stressed. Overnight checks. PLAN FOR INPATIENT GLYCEMIC CONTROL: * Hold outpatient oral diabetes medications * Basal insulin * Levemir 68 units SQ HS * Bolus insulin * NovoLog per scale ACHS or Q6hrs while NPO * Goal Range: Low 110 mg/dL - High 140 mg/dL * Correction Factor: 12 mg/dL/unit * Nutritional / Prandial insulin per carb ratio of 1 unit per 3 grams CHO consumed
[2022-03-03] MEDS ORDERED: INSULIN DETEMIR FLEXPEN/FLEX TOUCH 100 UNITS/ML 3ML SC SCH (16:30)
[2022-03-03] MEDS: oxyCODONE HCL IR 5 MG TAB (IMMEDIATE RELEASE) PO PRN (17:07)
[2022-03-03] MEDS: SENNA 8.6 MG TAB PO SCH (20:41)
[2022-03-03] MEDS: DOCUSATE SODIUM 100 MG CAP PO SCH (20:41)
[2022-03-03] MEDS ORDERED: metFORMIN HCL 500 MG TAB PO SCH (21:00)
[2022-03-03] MEDS ORDERED: VANCOMYCIN HCL 1,500 MG in SODIUM CHLORIDE 0.9% 500 ML IV SCH (22:00)
[2022-03-04] MEDS: INSULIN ASPART PER UNIT SC SCH ×6 (00:09→21:25)
[2022-03-04] MEDS: SODIUM CHLORIDE 0.9% 1000ML 1,000 ML IV SCH (00:59)
[2022-03-04] MEDS: oxyCODONE HCL IR 5 MG TAB (IMMEDIATE RELEASE) PO PRN ×5 (01:37→21:27)
[2022-03-04] MEDS: ACETAMINOPHEN 500 MG TAB PO SCH ×3 (04:35→21:19)
[2022-03-04] MEDS: LEVOTHYROXINE SODIUM 137 MCG TABLET PO SCH (04:37)
--- NOTE | 2022-03-04 07:29 | Orthopedic Progress Note ---
Date of Service March 04, 2022 Assessment & Plan (1) Primary osteoarthritis of right knee: Plan: POD#1 Right TKA -PT/OT -Pain management as written -DVT prophylaxis-SCDs, TEDs, Xarelto -AM labs are pending -D/c planning-plan on inpatient rehab vs SNF. Await PT/OT evals. Case management consult placed. Admission and Anticipated Discharge Date Admission Date: March 03, 2022 Subjective Patient is POD#1 right TKA. Had some increased pain overnight but is tolerable after ordered pain medication. No other complaints. Denies chest pain, sob, diz ziness, chills, n/v/d. Review of Systems Review of Systems: All systems reviewed & are unremarkable except as noted in Subjective Physical Exam Physical Exam: Right knee dressing is c/d/i, no calf tenderness. Toes mobile with good dorsiflexion. Able to do SLR. distally n/v status and sensation intact. Results & Data ([facility]) Vital Signs (Past 12 Hours) Vital Signs Temp Pulse Pulse Resp BP Pulse Ox 03/04/22 06:25 36.6 C 60 18 121/49 L 93 03/04/22 03:30 63 15 96 03/04/22 03:20 36.5 C 54 L 18 143/75 H 94 03/03/22 22:12 36.8 C 60 18 137/57 L 95 03/03/22 21:00 60 18 95
[2022-03-04 07:42] LABS: Hemoglobin 9.9 g/dL (12.0-16.0); Mean Corpuscular Hemoglobin 32.9 pg (25-34); Mean Corpuscular Hgb Conc 34.1 g/dL (32-36); Mean Corpuscular Volume 96.3 fL (80-100); Mean Platelet Volume 10.7 fL (7.4-10.4); Platelet Count 189 K/uL (130-400); RDW Coefficient of Variation 12.9 % (11.5-14.5); RDW Standard Deviation 45.4 fL (36.4-46.3); Red Blood Count 3.01 M/uL (4.2-5.4); White Blood Count 9.38 K/uL (4.8-10.8)
[2022-03-04 08:49] LABS: Anion Gap 6 (3-11); Blood Urea Nitrogen 17 mg/dl (6-23); Calcium 8.3 mg/dl (8.5-10.1); Carbon Dioxide 22 mmol/L (21-32); Chloride 110 mmol/L (98-107); Creatinine Clr Calc Pharmacy 69.5 ml/min; Est GFR (African American) 82.3 ml/min; Glucose 158 mg/dl (70-99(Fasting)); Sodium 138 mmol/L (136-145)
[2022-03-04] MEDS: FUROSEMIDE 40 MG TAB PO SCH (09:47)
[2022-03-04] MEDS: ATORVASTATIN 20 MG TAB PO SCH (09:48)
[2022-03-04] MEDS: DOCUSATE SODIUM 100 MG CAP PO SCH ×2 (09:49→21:20)
[2022-03-04] MEDS: RIVAROXABAN 10 MG TABLET PO SCH (09:49)
[2022-03-04] MEDS: hydroCHLOROthiazide 25 MG TAB PO SCH (09:49)
[2022-03-04] MEDS: METOPROLOL SUCC 50MG EXT REL TAB PO SCH (09:49)
[2022-03-04] MEDS: LOSARTAN POTASSIUM 50 MG TAB PO SCH (09:49)
[2022-03-04] MEDS: MULTIVITAMIN TAB PO SCH (09:49)
[2022-03-04] MEDS: CYANOCOBALAMIN (B-12) 500 MCG TABLET PO SCH (09:49)
[2022-03-04] MEDS: POTASSIUM CHLORIDE 10 MEQ TABCR PO SCH (09:50)
[2022-03-04] MEDS ORDERED: INSULIN DETEMIR FLEXPEN/FLEX TOUCH 100 UNITS/ML 3ML SC SCH (21:00)
[2022-03-04] MEDS: SENNA 8.6 MG TAB PO SCH (21:19)
[2022-03-05] MEDS: oxyCODONE HCL IR 5 MG TAB (IMMEDIATE RELEASE) PO PRN ×5 (01:24→20:40)
[2022-03-05] MEDS: ACETAMINOPHEN 500 MG TAB PO SCH ×3 (05:37→21:57)
[2022-03-05] MEDS: LEVOTHYROXINE SODIUM 137 MCG TABLET PO SCH (05:37)
--- NOTE | 2022-03-05 07:29 | Orthopedic Progress Note ---
Date of Service March 05, 2022 Assessment & Plan (1) Primary osteoarthritis of right knee: Plan: POD#2 Right TKA -PT/OT -Pain management as written -DVT prophylaxis-SCDs, TEDs, Xarelto -D/c planning-plan on inpatient rehab. [facility] is able to accept patient possibly over the weekend. Insurance authorization pending. Admission and Anticipated Discharge Date Admission Date: March 03, 2022 Subjective Patient is POD#2 right TKA. Pain is tolerable after ordered pain medication. No other complaints. Denies chest pain, sob, dizziness, chills, n/v/d. Review of Systems Review of Systems: All systems reviewed & are unremarkable except as noted in Subjective Physical Exam Physical Exam: Right knee dressing is c/d/i, no calf tenderness. Amanda intact. Toes mobile with good dorsiflexion. distally n/v status and sensation intact. Constitutional: well developed and well nourished; no acute distress Results & Data ([facility]) Vital Signs (Past 12 Hours) Vital Signs Temp Pulse Resp BP Pulse Ox 03/05/22 07:09 36.6 C 62 16 164/85 H 92 03/04/22 22:33 37.0 C 68 18 168/61 H 97
[2022-03-05] MEDS: FUROSEMIDE 40 MG TAB PO SCH (07:45)
[2022-03-05] MEDS: CYANOCOBALAMIN (B-12) 500 MCG TABLET PO SCH (07:46)
[2022-03-05] MEDS: DOCUSATE SODIUM 100 MG CAP PO SCH ×2 (07:46→20:56)
[2022-03-05] MEDS: POTASSIUM CHLORIDE 10 MEQ TABCR PO SCH (07:46)
[2022-03-05] MEDS: LOSARTAN POTASSIUM 50 MG TAB PO SCH (07:46)
[2022-03-05] MEDS: METOPROLOL SUCC 50MG EXT REL TAB PO SCH (07:47)
[2022-03-05] MEDS: RIVAROXABAN 10 MG TABLET PO SCH (07:47)
[2022-03-05] MEDS: ATORVASTATIN 20 MG TAB PO SCH (07:47)
[2022-03-05] MEDS: MULTIVITAMIN TAB PO SCH (07:47)
[2022-03-05] MEDS: hydroCHLOROthiazide 25 MG TAB PO SCH (07:47)
[2022-03-05] MEDS: INSULIN ASPART PER UNIT SC SCH ×4 (09:17→20:55)
--- NOTE | 2022-03-05 10:43 | Hospitalist Progress Note ---
Date of Service March 05, 2022 Assessment & Plan (1) Primary osteoarthritis of right knee: Plan: - s/p R TKA POD #2. - Utilize I/S q1-2h while awake for atelectasis/pna prevention - pain control as outlined - DVT ppx for minimum of 14 days (no previous family or personal h/o of dvt)--Xarelto being used which is appropriate - PT/OT eval - Plan is for rehab upon d/c to [facility] (2) Essential hypertension: Plan: - Takes Losartan 100 mg daily, Metoprolol 50 mg daily, HCTZ 12.5 mg daily, Furosemide 40 mg daily. - Ideally ARB should've been held POD#1 and resumed POD#2, however, it appears it was already resumed and pt is not having any issues with hypotension - Continue current antihypertensive regimen as written (3) Diabetes mellitus: Plan: - Last A1C 6.7 on 02/05/22. - Home regimen--> Metformin 1000 mg BID, Levemir 68 units in the evening and Novolog 14 units TID with meals. - Can continue metformin, accuchecks ACHS with SSI, continue home evening Levemir insulin. (4) Hyperlipidemia: Plan: - Continue Lipitor 20 mg daily. (5) Hypothyroidism: Plan: - TSH WNL 11/24/21. - Continue Levothyroxine 137 mcg daily. (6) LACIE on CPAP: Plan: - Continue CPAP at night. (7) Bilateral leg edema: Plan: - Takes Lasix 40 mg daily with 30 mEq K+ which has been continued Plan: Patient is doing well post operatively. Added Miralax to her daily bowel regimen in addition to the stool softener that she is taking each night. She is planning for d/c to rehab at [facility] when they are able to accept her. She is medically and hemodynamically stable from my standpoint for discharge. No further recommendations. Thank you for allowing us to participate in this patient's care. Will sign off at this time but continue to do daily chart checks. Please feel free to reach out if the need should arise. Plan to be d/w Dr. Monzon. Admission and Anticipated Discharge Date Admission Date: March 03, 2022 Subjective Patient seen on daily rounds this morning. She is resting comfortably in bed. POD#2 from R TKA. Pain is acceptably controlled with pain meds. She had one small BM since surgery. No abd pain or nausea. Passing flatus. Denies cp or dyspnea. Review of Systems Review of Systems: All systems reviewed and are unremarkable except as noted in HPI and below. Denies fever, chills, fatigue, headache, nasal congestion, sore throat, cough, chest pain, shortness of breath, palpitations, orthopnea, PND, abdominal pain, n/v/d, constipation, dysuria, hematuria, frequency, back pain, easy bruising or bleeding, skin lesions or rashes. Physical Exam Physical Exam: GENERAL: 76 yo obese elderly WF. NAD. LUNGS: Clear to auscultation bilaterally. No accessory muscle use. No W/R/R. CARDIOVASCULAR: Regular rate and rhythm. No M/G/R. No JVD. ABDOMEN: Soft, non-tender and non-distended. Bs normoactive x 4 quad. EXTREMITIES: R knee incision dressed with danyell which is clean/dry. Neg mayank's sign. No calf tenderness or swelling. NV intact. NEUROLOGIC: A&O x3. PSYCHIATRIC: Cooperative. Appropriate mood and affect. SKIN: Warm, dry, intact. No rashes or lesions. Results & Data Results & Data ([facility]) Vital Signs (Past 12 Hours) Vital Signs Temp Pulse Resp BP Pulse Ox 03/05/22 07:09 36.6 C 62 16 164/85 H 92 Laboratory Results 03/04/22 07:15 03/04/22 10:14 PG Care Time/CCT Total # of Minutes Spent Total Time Spent with Patient: Total time spent is greater than 50% in coordination of care (as documented) at patient's floor/unit and/or counseling patient: Coding Level of Care Code 80719 Subseq Obs Care Lvl 2 Diagnoses Primary osteoarthritis of right knee M17.11 Essential hypertension I10 Diabetes mellitus E11.42; Z79.4 Diabetes mellitus complication detail: with polyneuropathy Diabetes mellitus complication status: with neurologic complications Diabetes mellitus skilled nursing insulin use: with ad terminal makeup operator use Diabetes mellitus type: type 2 Hyperlipidemia E78.2 Hyperlipidemia type: mixed hyperlipidemia Hypothyroidism E03.9 LACIE on CPAP G47.33; Z99.89 Bilateral leg edema R60.0 (1) Diabetes mellitus Diabetes mellitus complication detail: with polyneuropathy Diabetes mellitus complication status: with neurologic complications Diabetes mellitus skilled nursing insulin use: with ad terminal makeup operator use Diabetes mellitus type: type 2 Qualified Code(s): E11.42 - Type 2 diabetes mellitus with diabetic polyneuropathy; Z79.4 - retirement (current) use of insulin (2) Hyperlipidemia Hyperlipidemia type: mixed hyperlipidemia Qualified Code(s): E78.2 - Mixed hyperlipidemia
--- NOTE | 2022-03-05 11:55 | Pharmacy Report ---
Pharmacy Glycemic Short Note 2 - Date of Service March 05, 2022 - Glycemic Short BSG Results (Last 24 hours): 03/04/22 03/04/22 03/04/22 11:54 16:57 20:27 POC Glucose 153 H 127 H 189 H 03/05/22 08:07 POC Glucose 176 H OUTPATIENT ANTIDIABETIC REGIMEN: * Levemir 68 units HS * Novolog 14 units TIDM * Metformin 1 gm PO BID * HbA1C = 6.7% (02/05/22) ASSESSMENT: * BSGs yesterday were [phone] mg/dL. Fasting today is 176 mg/dL. * Patient received 99 units of insulin yesterday (60 units of basal and 39 units of bolus). Patient's regimen is basal heavy but that is how it is at home. * Levemir decreased by 10% yesterday. Will increase back to home dose. * Continue tighten Novolog that is appropriate for 68 units of basal insulin/day. * Restart metformin. Background * Ms Romeo is a 76 y/o F with a PMH of IDDM who presents for R knee surgery. Patient received dexamethasone 8 mg IV intraop. * Confirmed via nurse that patient took 68 units of Levemir evening prior to surgery. * BSGs today are 134-175 and 223 mg/dL after surgery. * Will give Levemir 68 units (home dose) with dinner. Would typically reduce by 20% since home regimen is basal heavy but will give normal dose due to steroids. * Novolog based upon home dose stressed. Overnight checks. PLAN FOR INPATIENT GLYCEMIC CONTROL: * metformin 1000 mg PO BID * Basal insulin * Levemir 68 units SQ HS * Bolus insulin * NovoLog per scale ACHS or Q6hrs while NPO * Goal Range: Low 110 mg/dL - High 140 mg/dL * Correction Factor: 12 mg/dL/unit * Nutritional / Prandial insulin per carb ratio of 1 unit per 4 grams CHO consumed
[2022-03-05] MEDS: POLYETHYLENE (MIRALAX) 17 GM PACK PO SCH (12:13)
[2022-03-05] MEDS: metFORMIN HCL 500 MG TAB PO SCH (18:18)
[2022-03-05] MEDS: SENNA 8.6 MG TAB PO SCH (20:55)
[2022-03-05] MEDS ORDERED: INSULIN DETEMIR FLEXPEN/FLEX TOUCH 100 UNITS/ML 3ML SC SCH (21:00)
[2022-03-06] MEDS: ACETAMINOPHEN 500 MG TAB PO SCH ×3 (05:33→22:13)
[2022-03-06] MEDS: LEVOTHYROXINE SODIUM 137 MCG TABLET PO SCH (05:33)
[2022-03-06] MEDS: metFORMIN HCL 500 MG TAB PO SCH ×2 (08:12→16:44)
[2022-03-06] MEDS: RIVAROXABAN 10 MG TABLET PO SCH (08:13)
[2022-03-06] MEDS: POTASSIUM CHLORIDE 10 MEQ TABCR PO SCH (08:16)
[2022-03-06] MEDS: METOPROLOL SUCC 50MG EXT REL TAB PO SCH (08:17)
[2022-03-06] MEDS: ATORVASTATIN 20 MG TAB PO SCH (08:17)
[2022-03-06] MEDS: MULTIVITAMIN TAB PO SCH (08:17)
[2022-03-06] MEDS: CYANOCOBALAMIN (B-12) 500 MCG TABLET PO SCH (08:18)
[2022-03-06] MEDS: DOCUSATE SODIUM 100 MG CAP PO SCH ×2 (08:18→21:26)
[2022-03-06] MEDS: LOSARTAN POTASSIUM 50 MG TAB PO SCH (08:18)
[2022-03-06] MEDS: POLYETHYLENE (MIRALAX) 17 GM PACK PO SCH (08:19)
[2022-03-06] MEDS: FUROSEMIDE 40 MG TAB PO SCH (08:26)
[2022-03-06] MEDS: hydroCHLOROthiazide 25 MG TAB PO SCH (08:27)
[2022-03-06] MEDS: INSULIN ASPART PER UNIT SC SCH ×4 (08:32→21:28)
[2022-03-06] MEDS: oxyCODONE HCL IR 5 MG TAB (IMMEDIATE RELEASE) PO PRN ×2 (10:08→15:49)
--- NOTE | 2022-03-06 10:13 | Pharmacy Report ---
Pharmacy Glycemic Short Note 2 - Date of Service March 06, 2022 - Glycemic Short BSG Results (Last 24 hours): 03/05/22 03/05/22 03/05/22 12:09 17:08 20:45 POC Glucose 142 H 155 H 183 H 03/06/22 08:05 POC Glucose 71 OUTPATIENT ANTIDIABETIC REGIMEN: * Levemir 68 units HS * Novolog 14 units TIDM * Metformin 1 gm PO BID * HbA1C = 6.7% (02/05/22) ASSESSMENT: 03/06/22 * Fasting BSG 71mg/dl - decrease basal insulin to prevent hypoglycemia * No other changes needed at this time 03/05/22 * BSGs yesterday were [phone] mg/dL. Fasting today is 176 mg/dL. * Patient received 99 units of insulin yesterday (60 units of basal and 39 units of bolus). Patient's regimen is basal heavy but that is how it is at home. * Levemir decreased by 10% yesterday. Will increase back to home dose. * Continue tighten Novolog that is appropriate for 68 units of basal insulin/day. * Restart metformin. Background * Ms Romeo is a 76 y/o F with a PMH of IDDM who presents for R knee surgery. Patient received dexamethasone 8 mg IV intraop. * Confirmed via nurse that patient took 68 units of Levemir evening prior to surgery. * BSGs today are 134-175 and 223 mg/dL after surgery. * Will give Levemir 68 units (home dose) with dinner. Would typically reduce by 20% since home regimen is basal heavy but will give normal dose due to steroids. * Novolog based upon home dose stressed. Overnight checks. PLAN FOR INPATIENT GLYCEMIC CONTROL: * metformin 1000 mg PO BID * Basal insulin * Levemir 60 units SQ HS * Bolus insulin * NovoLog per scale ACHS or Q6hrs while NPO * Goal Range: Low 110 mg/dL - High 140 mg/dL * Correction Factor: 15 mg/dL/unit * Nutritional / Prandial insulin per carb ratio of 1 unit per 4 grams CHO consumed
--- NOTE | 2022-03-06 10:25 | Orthopedic Progress Note ---
Date of Service March 06, 2022 Assessment & Plan (1) Primary osteoarthritis of right knee: Plan: Postoperative day #3 status post right total knee arthroplasty. Plan for discharge as soon as a bed is available. Original plan for discharge to [facility] is no longer an option. Hopefully discharge to [facility], likely tomorrow. Covid test ordered. Admission and Anticipated Discharge Date Admission Date: March 03, 2022 Subjective Patient doing well. Currently ambulating in the hallway with therapy. Therapy reports she is making better progress every day. Pain is controlled. Physical Exam Physical Exam: Right knee dressings clean, dry, intact. Motor and sensory functions intact distally. Results & Data ([facility]) Vital Signs (Past 12 Hours) Vital Signs Temp Pulse Resp BP Pulse Ox 03/06/22 08:10 76 147/57 H 03/06/22 07:18 36.9 C 72 16 137/72 93 03/05/22 22:30 37.2 C 73 18 156/73 H 96
[2022-03-06] MEDS ORDERED: INSULIN DETEMIR FLEXPEN/FLEX TOUCH 100 UNITS/ML 3ML SC SCH (21:00)
[2022-03-06] MEDS: SENNA 8.6 MG TAB PO SCH (21:26)
[2022-03-07] MEDS: ACETAMINOPHEN 500 MG TAB PO SCH ×3 (05:43→22:29)
[2022-03-07] MEDS: LEVOTHYROXINE SODIUM 137 MCG TABLET PO SCH (05:43)
[2022-03-07] MEDS ORDERED: GLUCOSE 40% GEL 15 GM TUBE PO PRN (08:06)
[2022-03-07] MEDS ORDERED: CARBOHYDRATES FOR HYPOGLYCEMIA PO PRN (08:06)
[2022-03-07] MEDS ORDERED: DEXTROSE 50% 50 ML SYRINGE IV PRN (08:06)
[2022-03-07] MEDS ORDERED: GLUCAGON FOR INJ 1 MG VIAL SQ PRN (08:06)
[2022-03-07] MEDS ORDERED: GLUCOSE 10 TABS/TUBE PO PRN (08:06)
[2022-03-07] MEDS: oxyCODONE HCL IR 5 MG TAB (IMMEDIATE RELEASE) PO PRN ×3 (08:13→22:29)
[2022-03-07] MEDS: LOSARTAN POTASSIUM 50 MG TAB PO SCH (08:16)
[2022-03-07] MEDS: POTASSIUM CHLORIDE 10 MEQ TABCR PO SCH (08:17)
[2022-03-07] MEDS: DOCUSATE SODIUM 100 MG CAP PO SCH ×2 (08:17→19:45)
[2022-03-07] MEDS: FUROSEMIDE 40 MG TAB PO SCH (08:18)
[2022-03-07] MEDS: CYANOCOBALAMIN (B-12) 500 MCG TABLET PO SCH (08:18)
[2022-03-07] MEDS: RIVAROXABAN 10 MG TABLET PO SCH (08:18)
[2022-03-07] MEDS: ATORVASTATIN 20 MG TAB PO SCH (08:18)
[2022-03-07] MEDS: hydroCHLOROthiazide 25 MG TAB PO SCH (08:19)
[2022-03-07] MEDS: MULTIVITAMIN TAB PO SCH (08:20)
[2022-03-07] MEDS: METOPROLOL SUCC 50MG EXT REL TAB PO SCH (08:20)
[2022-03-07] MEDS: POLYETHYLENE (MIRALAX) 17 GM PACK PO SCH (08:22)
[2022-03-07] MEDS: metFORMIN HCL 500 MG TAB PO SCH ×2 (08:33→17:03)
[2022-03-07] MEDS: INSULIN ASPART PER UNIT SC SCH ×4 (09:08→22:28)
--- NOTE | 2022-03-07 09:23 | Pharmacy Report ---
Pharmacy Glycemic Short Note 2 - Date of Service March 07, 2022 - Glycemic Short BSG Results (Last 24 hours): 03/06/22 03/06/22 03/06/22 11:42 17:00 20:37 POC Glucose 117 H 114 H 92 03/07/22 03/07/22 08:02 08:29 POC Glucose 67 L* 77 OUTPATIENT ANTIDIABETIC REGIMEN: * Levemir 68 units HS * Novolog 14 units TIDM * Metformin 1 gm PO BID * HbA1C = 6.7% (02/05/22) ASSESSMENT: 03/07/22 * Fasting blood sugar 67mg/dl despite decrease in basal last night and loosening CR yesterday * Further decrease in Levemir and loosen CF/CR further to prevent hypoglycemia 03/06/22 * Fasting BSG 71mg/dl - decrease basal insulin to prevent hypoglycemia * No other changes needed at this time 03/05/22 * BSGs yesterday were [phone] mg/dL. Fasting today is 176 mg/dL. * Patient received 99 units of insulin yesterday (60 units of basal and 39 units of bolus). Patient's regimen is basal heavy but that is how it is at home. * Levemir decreased by 10% yesterday. Will increase back to home dose. * Continue tighten Novolog that is appropriate for 68 units of basal insulin/day. * Restart metformin. Background * Ms Romeo is a 76 y/o F with a PMH of IDDM who presents for R knee surgery. Patient received dexamethasone 8 mg IV intraop. * Confirmed via nurse that patient took 68 units of Levemir evening prior to surgery. * BSGs today are 134-175 and 223 mg/dL after surgery. * Will give Levemir 68 units (home dose) with dinner. Would typically reduce by 20% since home regimen is basal heavy but will give normal dose due to steroids. * Novolog based upon home dose stressed. Overnight checks. PLAN FOR INPATIENT GLYCEMIC CONTROL: * metformin 1000 mg PO BID * Basal insulin * Levemir 50 units SQ HS * Bolus insulin * NovoLog per scale ACHS or Q6hrs while NPO * Goal Range: Low 110 mg/dL - High 140 mg/dL * Correction Factor: 20 mg/dL/unit * Nutritional / Prandial insulin per carb ratio of 1 unit per 7 grams CHO consumed
--- NOTE | 2022-03-07 12:37 | Orthopedic Progress Note ---
Date of Service March 07, 2022 Assessment & Plan (1) Primary osteoarthritis of right knee: Plan: POD #4 for right TKA Awaiting insurance approval after peer to peer for [employer]. She understands if not approved she will have to go home. She will continue to progress with therapy in the meantime. Sanju, RIVASs, TEDs d/c hoping for rehab Admission and Anticipated Discharge Date Admission Date: March 03, 2022 Supervising Physician Co-Signing Physician Notes Patient seen and examined. Agree with RANDY Herrera's note as above. She is doing well and making good progress with therapy. She is aware of insurance denial for rehab placement. She may have to go home if this is denied and [id number] is not approved. Subjective Patient resting in bed eating lunch. No complaints today. Pain appears controlled. She states therapy is getting better each day. Physical Exam Physical Exam: Toes mobile, NVI. Calves soft, non tender. Dressing in place right knee Results & Data ([facility]) Vital Signs (Past 12 Hours) Vital Signs Temp Pulse Resp BP BP Pulse Ox 03/07/22 08:09 59 L 173/88 H 03/07/22 07:09 36.4 C L 63 16 147/77 H 98
[2022-03-07] MEDS: SENNA 8.6 MG TAB PO SCH (19:44)
[2022-03-07] MEDS ORDERED: INSULIN DETEMIR FLEXPEN/FLEX TOUCH 100 UNITS/ML 3ML SC SCH ×2 (21:00)
[2022-03-08] MEDS: ACETAMINOPHEN 500 MG TAB PO SCH ×2 (06:34→14:35)
[2022-03-08] MEDS: LEVOTHYROXINE SODIUM 137 MCG TABLET PO SCH (06:34)
--- NOTE | 2022-03-08 06:47 | Ultrasound Report ---
RIGHT LOWER EXTREMITY VENOUS DOPPLER CLINICAL HISTORY: ?dvt, increased swelling, pain COMPARISON STUDY: No previous studies for comparison. TECHNIQUE: Sonography of the deep venous system of the right lower extremity was performed. Compress ion and augmentation were evaluated. FINDINGS: The right common femoral, superficial femoral and popliteal veins were compressible. Augme ntation was normal. Flow was shown within the deep calf vessels. Subcutaneous edema within the right popliteal fossa is present. IMPRESSION: No evidence of deep venous thrombus within the right lower extremity. ACT 112: Negative or not required by law. Electronically signed by: Chase Brunner M.D. 03/08/2022 6:45 AM
--- NOTE | 2022-03-08 07:31 | Orthopedic Progress Note ---
Date of Service March 08, 2022 Assessment & Plan (1) Primary osteoarthritis of right knee: Plan: POD #5 for right TKA Awaiting insurance approval after peer to peer for [employer]. She understands if not approved she will have to go home. She will continue to progress with therapy in the meantime. Sanju, RIVASs, TEDs d/c hoping for rehab. Admission and Anticipated Discharge Date Admission Date: March 03, 2022 Subjective Patient is postop day 5 right total knee. She is resting in bed comfortably. Apparently she had increased pain yesterday afternoon. Doppler was ordered which was negative for DVT. No other complaints currently. Review of Systems Review of Systems: All systems reviewed & are unremarkable except as noted in Subjective Physical Exam Physical Exam: Right knee danyell dressing is c/d/i, no calf tenderness. Moderate amount of swelling. No erythema. Toes mobile with good dorsiflexion. distally n/v status and sensation intact. Constitutional: well developed and well nourished; no acute distress Results & Data ([facility]) Vital Signs (Past 12 Hours) Vital Signs Temp Pulse Resp BP Pulse Ox 03/07/22 22:39 37.0 C 83 17 146/69 H 97
[2022-03-08] MEDS: metFORMIN HCL 500 MG TAB PO SCH (09:15)
[2022-03-08] MEDS: MULTIVITAMIN TAB PO SCH (09:15)
[2022-03-08] MEDS: CYANOCOBALAMIN (B-12) 500 MCG TABLET PO SCH (09:15)
[2022-03-08] MEDS: DOCUSATE SODIUM 100 MG CAP PO SCH (09:15)
[2022-03-08] MEDS: hydroCHLOROthiazide 25 MG TAB PO SCH (09:16)
[2022-03-08] MEDS: METOPROLOL SUCC 50MG EXT REL TAB PO SCH (09:16)
[2022-03-08] MEDS: FUROSEMIDE 40 MG TAB PO SCH (09:17)
[2022-03-08] MEDS: RIVAROXABAN 10 MG TABLET PO SCH (09:17)
[2022-03-08] MEDS: LOSARTAN POTASSIUM 50 MG TAB PO SCH (09:17)
[2022-03-08] MEDS: POTASSIUM CHLORIDE 10 MEQ TABCR PO SCH (09:18)
[2022-03-08] MEDS: POLYETHYLENE (MIRALAX) 17 GM PACK PO SCH (09:18)
[2022-03-08] MEDS: ATORVASTATIN 20 MG TAB PO SCH (09:19)
[2022-03-08] MEDS: oxyCODONE HCL IR 5 MG TAB (IMMEDIATE RELEASE) PO PRN ×2 (09:24→14:17)
[2022-03-08] MEDS: INSULIN ASPART PER UNIT SC SCH ×2 (09:25→12:37)
[2022-03-08] MEDS ORDERED: COVID-19 VACC, TRIS(PFIZER)/PF 30 MCG/0.3 ML VIAL IM ONE (11:00)
--- NOTE | 2022-03-09 11:34 | Discharge Summary ---
Date of Service March 09, 2022 Admission HPI Per Admitting Provider 76-year-old female past medical history significant for diabetes mellitus type 2, hypertension, high cholesterol hypothyroidism, who presents with ongoing right knee pain. Patient has failed conservative measures including cortisone and Visco injections, anti-inflammatories. Pain is interfering with her daily activities. She would like to proceed with knee replacement. Patient denies headaches, sweats, fevers, chills, double vision, blurred vision, cough, sore throat, dysphagia, chest pain, sob, wheezing, n/v/d/c, numbness, tingling, fatigue, urinary symptoms, mood disorders. ROS positive for right knee pain and stiffness. Admission Exam Per Admitting Provider Physical Exam Constitutional: well developed and well nourished; no acute distress Eyes: PERRL, conjunctivae normal, anicteric sclerae ENMT: external ear and nose normal, oropharynx normal Neck: trachea midline, no thyromegaly Respiratory: normal respiratory effort, lungs clear to auscultation Cardiovascular: RRR, no murmur, no edema Musculoskeletal: Right knee: Mild effusion. Tenderness medial lateral joint lines. Stable valgus varus stress test. Positive Smooth's. Range of motion is 5 to 90 degrees. Moderate crepitation. Valgus alignment. Skin: no rashes, warm and dry Neurologic: patellar DTR's 2+ bilat, sensation intact Psychiatric: A+Ox3, euthymic affect Principal Diagnosis Right Knee Osteoarthritis Discharge Data Allergies Allergy/AdvReac Type Severity Reaction Status Date / Time ibuprofen Allergy Severe Anaphylaxis Verified 03/03/22 06:56 and hives Penicillins Allergy Severe Anaphylaxis Verified 03/03/22 06:56 and hives Consultations 03/01/22 12:13 Consult Hospitalist Routine Procedures Performed Operation Date: 03/03/22 09:15 Actual Procedures p Right Total Knee Arthroplasty(Right) - Edgar Garcia MD Ordered Studies 03/03/22 05:00 US - OR guided needle placemen Routine 03/07/22 17:46 US venous doppler LE RT Urgent Hospital Course (1) Primary osteoarthritis of right knee: Patient was admitted on the above-noted date and had the above-noted surgery performed which she tolerated well. On her first postoperative day, she had had some increased pain overnight but was tolerating well. Medications given with better control noted. Dressings were clean, dry, intact. Calves are soft and nontender. Neurovascular is intact. Vital signs were stable and she was started on physical therapy protocol and continued on DVT prophylaxis and pain management. Plan was for patient to go to a rehab facility versus intermediate facility. Case management was consulted. Patient was seen by [facility] hospitalist group. Patient remained medically stable of which they signed off after several days. Patient was continued on her PT and OT protocols. The initial choice for intermediate facility had to be changed and a second facility was chosen. Peer to peer had to be performed which was done by Dr. Garcia's office. Patient was approved for her skilled facility. She continue remain medically stable as well as orthopedically stable and by 03/08/2022, the patient was transferred to a intermediate facility for further care. Total Time Total Time Spent Total Time Spent (In Minutes): 5 Discharge Plan Discharge Items Patient Disposition: Transfer Care Home Fac Reason For Visit: Right Knee Osteoarthritis Discharge Diagnosis: Right knee osteoarthritis Activity: Per Instructions section Non-emergency contact: Surgeon Call non-emergency contact if: you have any medication questions, your pain is not controlled, your pain is concerning for you, you have a fever, your temperature is above 101, your wound has increased redness and your wound has increased drainage Follow-up/Referrals: Gail sOorio MD [Primary Care Provider] - Diet: Regular Addtl Attending Provider Instructions: ACTIVITY RECOMMENDATIONS: SELF CARE INSTRUCTIONS AFTER TOTAL KNEE REPLACEMENT A. You may need to continue a physical therapy program after discharge from the hospital. There are several options available to you. Your doctor will assist you in selecting the best one for you. 1. An out-patient facility 2 to 3 times a week for therapy or home therapy. 2. Continue working on all exercises taught to you in the hospital. Your goals should be to increase bending of your knee to 90 degrees and beyond and to fully straighten your knee. B. You may progress at your own pace from walking with a walker or crutches to a cane; then to no assistive devices. C. Make walking a part of your daily routine. Be up as much as comfortable with rest periods throughout the day. Rest with leg elevation is very important. Use the ice wrap frequently for the first 3-4 weeks. D. There are no restrictions on activities. You may ride in a car, shop, participate in manager supply chain planning and all social activities. E. Wear the long elastic stockings (AVRIL hose) 20 hours a day for 2 weeks after surgery. They can be removed several times a day for laundering and for a bath. F. You may shower, no tub baths until cleared by your doctor. SPECIAL CARE INSTRUCTIONS: VERY IMPORTANT TO READ AND REVIEW A. There are a few signs you need to watch for after you are home. Call [facility] if you notice any of the followin. Increased severe knee pain. Some pain is expected especially when you exercise. 2. Increased swelling in your leg or knee; pain or swelling of the calf muscle in either lower leg. 3. Any fluid drainage from the incision. 4. Shortness of breath or chest pain. B. Please call [facility] at if you have any concerns or questions about your operation or recovery. The doctor or his nurse will return your call promptly. C. You must take antibiotics before dental work, bladder, bowel or other surgery. Your doctor will provide you with a permanent care to carry describing this precaution. IMPORTANT: * REMEMBER TO TAKE ASPIRIN, 81 MG, TWICE DAILY FOR 4 WEEKS UNLESS OTHERWISE DIRECTED. THIS IS YOUR BLOOD THINNER. * HIGH RISK PATIENTS MAY BE PRESCRIBED A STRONGER BLOOD THINNER. THIS WILL BE PROVIDED AT DISCHARGE. * CALL IF INCREASED PAIN, REDNESS, DRAINAGE OR FEVER GREATER THAT 101. * WEAR AVRIL HOSE 20 HOURS PER DAY FOR 2 WEEKS. This is a large suction dressing covering your incision. This will help pull any excess drainage from the wound and allow your incision to heal properly. You may shower with this if you can keep the unit outside of the shower. If any bleeding or leakage is noted please call your doctor's office. This will remain on your incision for 7 days and then should be removed. This can be done yourself or by the home nursing staff if applicable. The entire unit is disposable once removed. Once removed, keep incision clean and dry. If redness or drainage is noted, please call your surgeon. IF INCISION IS LEAKING THROUGH DRESSING, CALL THE OFFICE . FOLLOW UP VISIT: If appointment is not already scheduled: Please call [facility] to make a follow-up appointment for 2 weeks after your surgery at . Pending Studies at Discharge: No Stand-Alone Forms: My [facility] Skilled Items Patient informed of condition?: Yes DNR: No Discharge Level of Care: Skilled Communicable Disease: No Discharge Prognosis: Improving Lines: None Urinary Catheter: No Medications and DC Order Prescriptions: New acetaminophen [Tylenol Extra Strength] 500 mg Tablet 1,000 mg PO Q8 Qty: 60 RF: 0 oxycodone 5 mg Tablet 5 - 10 mg PO .Q4h-6h MDD 6 PRN (Reason: pain) Qty: 30 RF: 0 Xarelto 10 mg Tablet 10 mg PO DAILY Qty: 30 RF: 0 Continued Novolog Flexpen U-100 Insulin 100 unit/mL (3 mL) insulin pen 14 unit SQ TID Qty: 13 RF: 3 (DME) pen needle, diabetic [Sure-Fine Pen Holly] 31 gauge x 5/16" needle See Rx Instructions .ROUTE .MEDSUPPLY Qty: 150 RF: 5 (DME) blood sugar diagnostic Strip See Dose Instructions .ROUTE .MEDSUPPLY Qty: 100 RF: 11 Levemir FlexTouch U-100 Insuln 100 unit/mL (3 mL) insulin pen 68 unit SQ QPM Qty: 45 RF: 6 (DME) lancets [OneTouch UltraSoft Lancets] misc See Dose Instructions .ROUTE .MEDSUPPLY Qty: 100 RF: 3 (DME) knee high compression stockings mild compression See Rx Instructions .Route .MEDSUPPLY Qty: 1 RF: 5 levothyroxine [Synthroid] 137 mcg tablet 137 mcg PO QAM RF: 0 atorvastatin 20 mg tablet 20 mg PO QAM RF: 0 metoprolol succinate 50 mg tablet extended release 24 hr 50 mg PO QAM RF: 0 cyanocobalamin (vitamin B-12) 1,000 mcg tablet 1,000 mcg PO QAM RF: 0 potassium chloride 10 mEq tablet extended release 30 meq PO QAM RF: 0 furosemide 20 mg tablet 40 mg PO QAM RF: 0 losartan [Cozaar] 100 mg tablet 100 mg PO QAM RF: 0 hydrochlorothiazide 12.5 mg tablet 12.5 mg PO QAM RF: 0 metformin 1,000 mg tablet 1,000 mg PO BID RF: 0 Discontinued acetaminophen [Tylenol Arthritis Pain] 650 mg tablet extended release 1,300 mg PO Q12H PRN (Reason: fever or pain) Qty: 90 RF: 0 aspirin 81 mg tablet,delayed release (DR/EC) 81 mg PO QAM RF: 0 Discharge Orders: Discharge Order (Routine); Ordered 03/08/22 Ordered By: Rodrigo Atwood Admission Data Admit Date/Time: 03/03/22 11:50 Attending Provider: Edgar Garcia Admit Provider: Edgar Garcia Primary Care Provider: Gail Osorio Other Providers: Rafa Miranda Other Interventions: Discharge Summary Assessment (RN) Last Done: 03/08/22 13:38
--- NOTE | 2022-03-12 11:50 | Coding Query ---
A supporting diagnosis is required for the test/procedure performed on this patient in order for us to be reimbursed by the patient's insurance. Please provide a supporting diagnosis for the following test/procedure listed below next to the test name along with your signature. *If there is no additional diagnosis for this patient that would support the following test/procedure please document that below next to the test/procedure. Test(s)/Procedure(s) that require a supporting diagnosis: VENOUS DOPPLER LOWER EXT UNILA DIAGNOSIS:____swelling, redness Provider Signature: Date: Thank you Daija Jewell [facility] Information Management Once completed, please kindly fax back to [phone] For questions please call [phone] [facility]
== END 2022-03-08 14:44 ==
LOC: 3E 06:31 → ASU 06:31